=== PATIENT | male | born 1970 | race Two or more races ===

== ENCOUNTER 2024-10-22 20:58 | Inpatient (IN) | payer MEDICAID, OTHER ==
[~2024-10-22] VITALS: Ht 162.6 cm; Wt 81.5 kg
[2024-10-22 21:57] LABS: Basophils # (auto) 0 10 ^3/uL (0-0.2); Basophils % (auto) 0.4 % (0.0-2.0); Eosinophils # (auto) 0.2 10 ^3/uL (0-0.8); Eosinophils % (auto) 2.2 % (0.0-7.0); Hematocrit 42.9 % (41.0-53.0); Hemoglobin 14.8 g/dL (13.5-17.5); Lymphocytes # (auto) 2.1 10 ^3/uL (0.4-5.4); Lymphocytes % (auto) 25.7 % (10.0-50.0); Mean Corpuscular Hemoglobin 33.1 pg (28.0-32.0); Mean Corpuscular Hgb Conc. 34.4 g/dL (32.0-36.0); Mean Corpuscular Volume 96.2 fL (80.0-100.0); Monocytes # (auto) 0.7 10 ^3/uL (0-1.3); Monocytes % (auto) 8.2 % (0.0-12.0); Neutrophils # (auto) 5.3 10 ^3/uL (1.6-8.6); Neutrophils % (auto) 63.5 % (37.0-80.0); Nucleated Red Blood Cells % 0.2 %; Platelet Count (auto) 246 10^3/uL (140-450); Red Blood Cells 4.46 10^6/uL (4.5-5.90); Red Cell Distribution Width 12.7 % (11.8-14.3); White Blood Cell 8.3 10^3/uL (4.4-10.8)
[2024-10-22 22:09] LABS: Albumin 4.3 g/dL (3.2-4.8); Anion Gap 13 (5-15); BUN/Creatinine Ratio 12.8 (10.0-20.0); Blood Urea Nitrogen 14 mg/dL (9-23); Calcium 10.2 mg/dL (8.7-10.4); Carbon Dioxide 23 mmol/L (20-31); Potassium 4.4 mmol/L (3.5-5.1)
[2024-10-22 22:10] LABS: Alanine Aminotransferase 49 U/L (7-40); Alkaline Phosphatase 185 U/L (46-116); Aspartate Aminotransferase 42 U/L (13-40); Bilirubin, Total 0.5 mg/dL (0.2-1.0); Chloride 94 mmol/L (98-107); Sodium 130 mmol/L (136-145); Total Protein 7.5 g/dL (5.7-8.2)
[2024-10-22 22:11] LABS: Glucose 609 mg/dL (74-106)
--- NOTE | 2024-10-22 22:32 | ED.PDOC ---
History of Present Illness HPI Comments 54-year-old male who came to ER for chest pain. Patient denies any medical problems, states for the past month, he has been having left anterior chest wall pain. Denies any trauma through the aforementioned area. For the past 4 days, patient still with left-sided chest pain, no associated shortness of breath. Patient complained also of weight loss, claims lost 40 lb in 1 week. Upon arrival, noted blood sugar of 609. Chief Complaint: Chest pain Time Seen by MD: 22:32 Reviewed Notes: Nurses Notes Allergies: Coded Allergies: NO KNOWN ALLERGIES (Unverified , 10/22/24) Information Source: Patient Mode of Arrival: Ambulatory Severity: Moderate Timing: Days Duration: Intermittent Prehospital treatment: None Past Medical History PAST MEDICAL HISTORY: Denies Surgical History: Denies all surgeries Family History Family History: Reviewed,noncontributory to illness Social History Smoker: Non-Smoker Alcohol: Denies ETOH Use Drugs: Denies Drug Use Lives In: Home Constitutional: denies: chills, diaphoresis, fatigue, fever, malaise, sweats, weakness, others EENTM: denies: blurred vision, double vision, ear bleeding, ear discharge, ear drainage, ear pain, ear ringing, eye pain, eye redness, hearing loss, mouth pain, mouth swelling, nasal discharge, nose bleeding, nose congestion, nose pain, photophobia, tearing, throat pain, throat swelling, voice changes, others Respiratory: reports: shortness of breath; denies: cough, hemoptysis, orthopnea, SOB at rest, SOB with excertion, stridor, wheezing, others Cardiovascular: reports: chest pain; denies: dizzy spells, diaphoresis, Dyspnea on exertion, edema, irregular heart beat, left arm pain, lightheadedness, palpitations, PND, syncope, others Gastrointestinal: denies: abdomen distended, abdominal pain, blood streaked bowels, constipated, diarrhea, dysphagia, difficulty swallowing, hematemesis, melena, nausea, poor appetite, poor fluid intake, rectal bleeding, rectal pain, vomiting, others Genitourinary: denies: burning, dysuria, flank pain, frequency, hematuria, incontinence, penile discharge, penile sore, pain, testicle pain, testicle swelling, urgency, others Neurological: denies: dizziness, fainting, headache, left sided numbness, left sided weakness, numbness, paresthesia, pre-existing deficit, right sided numbness, right sided weakness, seizure, speech problems, tingling, tremors, weakness, others Musculoskeletal: denies: back pain, gout, joint pain, joint swelling, muscle pain, muscle stiffness, neck pain, others Integumetry: denies: bruises, change in color, change in hair/nails, dryness, laceration, lesions, lumps, rash, wounds, others Allergic/Immunocompromised: denies: Difficulty Healing, Frequent Infections, Hives, Itching, others Hematologic/Lymphatic: denies: anemia, blood clots, easy bleeding, easy bruising, swollen glands, others Endocrine: denies: excessive hunger, excessive sweating, excessive thirst, excessive urination, flushing, intolerance to cold, intolerance to heat, unexplained weight gain, unexplained weight loss, others Physical Exam General Appearance: Mild Distress, Normal HEENT: Normal ENT Inspection, Pharynx Normal, TMs Normal Neck: Full Range of Motion, Non-Tender, Normal, Normal Inspection Respiratory: Chest Non-Tender, Lungs Clear, No Accessory Muscle Use, No Respiratory Distress, Normal Breath Sounds Cardiovascular: No Edema, No JVD, No Murmur, No Gallop, Normal Peripheral Pulses, Regular Rate/Rhythm Breast Exam: Deferred Gastrointestinal: No Organomegaly, Non Tender, No Pulsatile Mass, Normal Bowel Sounds, Soft Genitalia: Deferred Pelvic: Deferred Rectal: Deferred Extremities: No calf tenderness, Normal capillary refill, Normal inspection, Normal range of motion, Non-tender, No pedal edema Musculoskeletal : Apperance: Normal Neurologic: Alert, special delivery messenger II-XII nml as Tested, No Motor Deficits, Normal Affect, Normal Mood, No Sensory Deficits Cerebellar Function: Normal Reflexes: Normal Skin: Dry, Normal Color, Warm Lymphatic: No Adenopathy Was a procedure done? Was a procedure done?: No EKG EKG : Pulse Rate (adult): 101 [place]: LAD Cardiac Rhythm: ST Hypertrophy: LAE Differential Dx Considerations may include: Anemia, electrolyte imbalance, musculoskeletal pain, costochondritis, anxiety, shortness of breath, pneumonia X-Ray, Labs, Meds, VS Vital Signs Date Time Temp Pulse Resp B/P (MAP) Pulse Ox O2 Delivery O2 Flow Rate FiO2 10/22/24 23:40 97.6 91 20 148/102 (117) 95 97.6 10/22/24 22:32 101 10/22/24 21:27 97.6 114 18 178/76 (110) 95 Lab Test 10/22/24 21:42 Range/Units White Blood Count 8.3 4.4-10.8 10^3/uL Red Blood Count 4.46 L 4.5-5.90 10^6/uL Hemoglobin 14.8 13.5-17.5 g/dL Hematocrit 42.9 41.0-53.0 % Mean Corpuscular Volume 96.2 80.0-100.0 fL Mean Corpuscular Hemoglobin 33.1 H 28.0-32.0 pg Mean Corpuscular Hemoglobin Concent 34.4 32.0-36.0 g/dL Red Cell Distribution Width 12.7 11.8-14.3 % Platelet Count 246 140-450 10^3/uL Mean Platelet Volume 9.0 6.9-10.8 fL Neutrophils (%) (Auto) 63.5 37.0-80.0 % Lymphocytes (%) (Auto) 25.7 10.0-50.0 % Monocytes (%) (Auto) 8.2 0.0-12.0 % Eosinophils (%) (Auto) 2.2 0.0-7.0 % Basophils (%) (Auto) 0.4 0.0-2.0 % Neutrophils # (Auto) 5.3 1.6-8.6 10 ^3/uL Lymphocytes # (Auto) 2.1 0.4-5.4 10 ^3/uL Monocytes # (Auto) 0.7 0-1.3 10 ^3/uL Eosinophils # (Auto) 0.2 0-0.8 10 ^3/uL Basophils # (Auto) 0 0-0.2 10 ^3/uL Nucleated Red Blood Cells 0.2 % Sodium Level 130 L 136-145 mmol/L Potassium Level 4.4 3.5-5.1 mmol/L Chloride Level 94 L 98-107 mmol/L Carbon Dioxide Level 23 20-31 mmol/L Anion Gap 13 5-15 Blood Urea Nitrogen 14 9-23 mg/dL Creatinine 1.09 0.700-1.30 mg/dL Glomerular Filtration Rate Calc 82 >90 mL/min BUN/Creatinine Ratio 12.8 10.0-20.0 Serum Glucose 609 *H 74-106 mg/dL Calcium Level 10.2 8.7-10.4 mg/dL Total Bilirubin 0.5 0.2-1.0 mg/dL Aspartate Amino Transferase (AST) 42 H 13-40 U/L Alanine Aminotransferase (ALT) 49 H 7-40 U/L Alkaline Phosphatase 185 H 46-116 U/L Troponin I High Sensitivity 5 </=54 ng/L Total Protein 7.5 5.7-8.2 g/dL Albumin 4.3 3.2-4.8 g/dL CBC is within normal limits Sodium is 130. Serum glucose is 609. CO2 is 23 Troponin is five. EKG shows no signs of ischemia. LFTs are elevated. Beta hydroxybutyric acid is pending and lactic acid is pending The patient should be admitted for first-time diabetes, new upset to the hospital for further evaluation and care. Images Reviewed?: Images reviewed and evaluated by me Time of 1ST Reevaluation: 22:27 Reevaluation 1ST: Unchanged Patient Education/Counseling: Diagnosis, Treatment Family Education/Counseling: No Family Present Departure 1 Departure Time of Disposition: 23:52 Impression: Primary Impression: Hyperglycemia Additional Impressions: Dehydration Elevated LFTs Disposition: ADMITTED INPATIENT Admit to: Tele Condition: Guarded Critical Care Note Critical Care Time?: Yes (35 min-critical care time only) Critical care comment: Hyperglycemia Stability Stability form required: No Heart Score Heart Score: Heart Score Response (Comments) Value History N/A 0 EKG N/A 0 Age N/A 0 Risk Factors N/A 0 Troponin N/A 0 Total 0 I personally scribed for YEISON BAUTISTA MD ([email or web address]) on 10/22/24 at 22:32. Electronically submitted by Rafael Partida ([email or web address]). YEISON BAUTISTA MD Oct 22, 2024 22:32
[2024-10-23] MEDS: SODIUM CHLORIDE 0.9% 2,000 ML IV ONE (02:51)
[2024-10-23 02:53] VITALS: PULSE 91; RESP 20; O2SAT 97
[2024-10-23] MEDS ORDERED: MORPHINE SULFATE INJ 2 MG/ml SYRG IV PRN (07:45)
[2024-10-23] MEDS ORDERED: DEXTROSE (50%) 50ML SYRG IV PRN ×2 (07:45→08:00)
[2024-10-23] MEDS ORDERED: ONDANSETRON HCL 4 MG/2 ML VIAL IV PRN (07:45)
[2024-10-23] MEDS ORDERED: hydrALAZINE HCL 20 MG/ML VL IV PRN (07:45)
[2024-10-23] MEDS ORDERED: NITROGLYCERIN 0.4 MG SL TAB SL PRN (07:45)
--- NOTE | 2024-10-23 07:58 | DVHHP2 ---
History of Present Illness Reason for Visit: Chest pain History of Present Illness This 54-year-old male presents in the ED with a chief complaint of chest wall pain. The patient reports intermittent chest wall pain for the past one month. Chest pain described as pressure pain associated with shortness of breath, worse on exertion intermittently, and bilateral leg pain for the past one month. The patient denies past medical history and has not seen PCP due to lacking of insurance. Patient denies tobacco, illicit drug, or ETOH use. Denies familiar history of cardiovascular disease. In the emergency department, noted blood sugar of 609, positive beta hydroxy. The patient was given IV fluid and repeated blood sugar came back entry 100s. Past Medical History Denies Past Surgical History Denies Family History Reviewed, non-contributory to the management of this case. Past Social History The patient lives at home, denies smoking, alcohol or illicit drugs abuse. Review of Systems Constitutional: Yes: Malaise; No: Fever, Chills, Sweats, Weakness, Other Eyes: No: Pain, Vision change, Conjunctivae inflammation, Eyelid inflammation, Other, Redness ENT: No: Ear pain, Ear discharge, Nose pain, Nose discharge, Nose congestion, Mouth pain, Mouth swelling, Throat pain, Throat swelling, Other Respiratory: No: Cough, Dry, Shortness of breath, SOB with excertion, Wheezing, Hemoptysis, Pleuritic Pain, Sputum, Wheezing, Other Cardiovascular: Chest Pain; No: Palpitations, Orthopnea, Paroxysmal Noc. Dyspnea, Edema, Lt Headedness, Other Gastrointestinal: No: Nausea, Vomiting, Abdominal Pain, Diarrhea, Constipation, Melena, Hematochezia, Other Genitourinary: No Dysuria, No Frequency, No Incontinence, No Hematuria, No Retention, No Other Musculoskeletal: No: other, neck pain, shoulder pain, arm pain, back pain, hand pain, leg pain, foot pain Skin: No: Rash, Lesions, Jaundice, Bruising, Other Neurological: No: Weakness, Numbness, Incoordination, Change in speech, Confusion, Seizures, Other Allergies: Coded Allergies: NO KNOWN ALLERGIES (Unverified , 10/22/24) Exam Vital Signs Vital Signs Date Time Temp Pulse Resp B/P (MAP) Pulse Ox O2 Delivery O2 Flow Rate FiO2 10/23/24 06:32 97.5 76 18 140/86 (104) 97 97.5 10/23/24 02:53 Room Air* 0 21 General Appearance: Alert, Oriented X3, Cooperative, mild distress HEENT: Atraumatic, PERRLA, EOMI, Mucous membr. moist/pink Respiratory: Clear to auscultation, Normal air movement Cardiovascular: Regular rate, Normal S1, Normal S2 Abdominal: Normal bowel sounds, Soft, No tenderness Extremities: No clubbing, No cyanosis, No edema, Normal pulses Skin: No rashes, No breakdown, No significant lesion Neuro: Normal gait, Normal speech, Strength at 5/5 X4 ext, Normal tone Psych/Mental Status: Mental status NL Labs/Xrays Labs Test 10/23/24 06:11 10/23/24 00:09 10/22/24 21:42 Range/Units Troponin I High Sensitivity 6 </=54 ng/L Lactic Acid Level 1.2 0.4-2.0 mmol/L Beta-Hydroxybutyric Acid 4.485 H < 0.4 mmol/L White Blood Count 8.3 4.4-10.8 10^3/uL Red Blood Count 4.46 L 4.5-5.90 10^6/uL Hemoglobin 14.8 13.5-17.5 g/dL Hematocrit 42.9 41.0-53.0 % Mean Corpuscular Volume 96.2 80.0-100.0 fL Mean Corpuscular Hemoglobin 33.1 H 28.0-32.0 pg Mean Corpuscular Hemoglobin Concent 34.4 32.0-36.0 g/dL Red Cell Distribution Width 12.7 11.8-14.3 % Platelet Count 246 140-450 10^3/uL Mean Platelet Volume 9.0 6.9-10.8 fL Neutrophils (%) (Auto) 63.5 37.0-80.0 % Lymphocytes (%) (Auto) 25.7 10.0-50.0 % Monocytes (%) (Auto) 8.2 0.0-12.0 % Eosinophils (%) (Auto) 2.2 0.0-7.0 % Basophils (%) (Auto) 0.4 0.0-2.0 % Neutrophils # (Auto) 5.3 1.6-8.6 10 ^3/uL Lymphocytes # (Auto) 2.1 0.4-5.4 10 ^3/uL Monocytes # (Auto) 0.7 0-1.3 10 ^3/uL Eosinophils # (Auto) 0.2 0-0.8 10 ^3/uL Basophils # (Auto) 0 0-0.2 10 ^3/uL Nucleated Red Blood Cells 0.2 % Sodium Level 130 L 136-145 mmol/L Potassium Level 4.4 3.5-5.1 mmol/L Chloride Level 94 L 98-107 mmol/L Carbon Dioxide Level 23 20-31 mmol/L Anion Gap 13 5-15 Blood Urea Nitrogen 14 9-23 mg/dL Creatinine 1.09 0.700-1.30 mg/dL Glomerular Filtration Rate Calc 82 >90 mL/min BUN/Creatinine Ratio 12.8 10.0-20.0 Serum Glucose 609 *H 74-106 mg/dL Calcium Level 10.2 8.7-10.4 mg/dL Total Bilirubin 0.5 0.2-1.0 mg/dL Aspartate Amino Transferase (AST) 42 H 13-40 U/L Alanine Aminotransferase (ALT) 49 H 7-40 U/L Alkaline Phosphatase 185 H 46-116 U/L Total Protein 7.5 5.7-8.2 g/dL Albumin 4.3 3.2-4.8 g/dL Assessment/Plan Assessment/Plan # Uncontrolled blood sugar # Rule out DKA # Possible Diabetes mellitus type 2 Admit to [facility] Repeat labs Lantus IV fluid May start insulin drip based on repeated blood work Check A1c, lipid panel # acute intermittent wall chest pain, possible noncardiac Normal EKG, negative troponin Check echo ASA, Statins Check TSH # obesity Lifestyle modification counseled with regular diet exercise and weight loss DVT prophylaxis Medical plan discussed with patient and RN Plan discussed with: Patient My Orders Orders - GISELLE ORELLANA CLINICAL INFORMATICS DIRECTOR Procedure Category Date Status Time Complete Blood Count LAB 10/23/24 Logged 07:20 Comprehensive LAB 10/23/24 Logged Metabolic Panel 07:20 Beta-Hydroxybutyrate LAB 10/23/24 Logged 07:20 Urinalysis LAB 10/23/24 Logged 07:20 Hemoglobin A1c LAB 10/23/24 Transmitted 07:41 Thyroid Stimulating LAB 10/23/24 Transmitted Hormone 07:41 Lipid Panel LAB 10/23/24 Transmitted 07:41 NS PHA 10/23/24 Transmitted 07:45 Chest Xray 1 View XY 10/23/24 Transmitted 07:41 Electrocardigram EKG 10/23/24 Transmitted 07:41 Communication Order ORDERS 10/23/24 Transmitted 07:41 Insulin Lantus PHA 10/23/24 Transmitted (Glargine) (Lantus) 22:00 Insulin Lantus PHA 10/23/24 Transmitted (Glargine) (Lantus) 07:45 Echo 2d Mode Cardiac US 10/23/24 Transmitted DOP 07:41 NS PHA 10/23/24 Transmitted 07:45 Hydralazine Injection PHA 10/23/24 Transmitted (Apresoline Inject 07:45 Admit ADMIT 10/23/24 Transmitted 07:41 Code Status CODE 10/23/24 Transmitted 07:41 Ondansetron Hcl PHA 10/23/24 Transmitted (Zofran) 07:45 Enoxaparin Sodium PHA 10/23/24 Transmitted (Lovenox) 10:00 Complete Blood Count LAB 10/24/24 Verified 04:00 Comprehensive LAB 10/24/24 Verified Metabolic Panel 04:00 Cardiac DIET 10/23/24 Transmitted Diet-2gna,Lofat,Lochol Breakfast Condition: Fair MARYBETH 10/23/24 In Process 07:41 Nitroglycerin PHA 10/23/24 Transmitted Sublingual (Ntrostat 07:45 Morphine Sulfate PHA 10/23/24 Transmitted Injection 07:45 Stat Ekg For Chest MARYBETH 10/23/24 In Process Pain 07:41 Notify Md Of Changes MARYBETH 10/23/24 In Process From Base 07:41 Computer Aided Drafter For MARYBETH 10/23/24 In Process 24 Hours 07:41 Emergency Dysrhythmia MARYBETH 10/23/24 In Process Protocol 07:41 Rhythm Strips Once [facility] 10/23/24 In Process Every Shift 07:41 Oxygen By Nasal RT 10/23/24 Transmitted Cannula 07:41 Insulin R (Human) PHA 10/23/24 Transmitted (Insulin R) 07:45 Glucose Blood PHA 10/23/24 Transmitted (Accu-Chek Comfort 11:30 Mild Sliding Scale PHA 10/23/24 Transmitted 11:30 Dextrose 50% Syringe PHA 10/23/24 Transmitted 07:45 Date of Service: Oct 23, 2024 Billing Provider: GISELLE ORELLANAP Common Visit Codes: [id number] INP/OBS CARE (HIGH) GISELLE ORELLANAP Oct 23, 2024 07:58
[2024-10-23 08:06] LABS: Basophils # (auto) 0 10 ^3/uL (0-0.2); Basophils % (auto) 0.3 % (0.0-2.0); Eosinophils # (auto) 0.3 10 ^3/uL (0-0.8); Eosinophils % (auto) 3.5 % (0.0-7.0); Hematocrit 40.8 % (41.0-53.0); Hemoglobin 14.1 g/dL (13.5-17.5); Lymphocytes # (auto) 2.2 10 ^3/uL (0.4-5.4); Lymphocytes % (auto) 27.1 % (10.0-50.0); Mean Corpuscular Hemoglobin 33.1 pg (28.0-32.0); Mean Corpuscular Hgb Conc. 34.4 g/dL (32.0-36.0); Monocytes # (auto) 0.7 10 ^3/uL (0-1.3); Monocytes % (auto) 8.3 % (0.0-12.0); Neutrophils # (auto) 4.9 10 ^3/uL (1.6-8.6); Neutrophils % (auto) 60.8 % (37.0-80.0); Platelet Count (auto) 238 10^3/uL (140-450); Red Blood Cells 4.25 10^6/uL (4.5-5.90); Red Cell Distribution Width 13.3 % (11.8-14.3); White Blood Cell 8.1 10^3/uL (4.4-10.8)
[2024-10-23 08:14] LABS: Albumin 4.2 g/dL (3.2-4.8); Anion Gap 13 (5-15); Aspartate Aminotransferase 33 U/L (13-40); BUN/Creatinine Ratio 10.3 (10.0-20.0); Calcium 9.4 mg/dL (8.7-10.4); Carbon Dioxide 21 mmol/L (20-31); Chloride 102 mmol/L (98-107); HDL Cholesterol 55 mg/dL (40-59); Potassium 4.1 mmol/L (3.5-5.1); Sodium 136 mmol/L (136-145); Triglycerides 268 mg/dL (< 150)
[2024-10-23 08:15] LABS: Alanine Aminotransferase 43 U/L (7-40); Alkaline Phosphatase 137 U/L (46-116); Bilirubin, Total 0.6 mg/dL (0.2-1.0); Blood Urea Nitrogen 9 mg/dL (9-23); Cholesterol 286 mg/dL (< 200); Glucose 346 mg/dL (74-106); LDL Cholesterol 199 mg/dL (< 100); Total Protein 7.5 g/dL (5.7-8.2)
[2024-10-23] MEDS: INSULIN LANTUS (GLARGINE) 1 /0.01ml (100units/ml) SC ONE (08:22)
[2024-10-23] MEDS: InsuLIN REG 1unit/0.01ml Soln (100units/ml) SC ONE (08:22)
[2024-10-23] MEDS: SODIUM CHLORIDE 0.9% 1,000 ML IV ONE (08:22)
[2024-10-23] MEDS: SODIUM CHLORIDE 0.9% 1,000 ML IV SCH (08:23)
--- NOTE | 2024-10-23 08:40 | DVH ---
CHEST RADIOGRAPH Indication: CHEST PAIN Technique: Single frontal view of the chest was obtained Comparison: None FINDINGS: Lines and Tubes: None Lungs: No focal consolidation. Pleura: No effusion. No pneumothorax. Cardiomediastinal contours: Unremarkable Bones: No acute osseous abnormality. IMPRESSION: 1. No acute cardiopulmonary disease.
[2024-10-23] MEDS: ASPirin 325 MG TAB PO ONE (08:56)
[2024-10-23] MEDS: ENOXAPARIN SOD 40 MG/0.4 ML SYRINGE SC SCH (08:56)
[2024-10-23] MEDS: ACCU-CHEK COMFORT CURVE STRIP VI SCH (11:19)
[2024-10-23] MEDS: InsuLIN REG 1unit/0.01ml Soln (100units/ml) SC SCH (11:24)
[2024-10-23] MEDS ORDERED: InsuLIN REG 1unit/0.01ml Soln (100units/ml) SC SCH (11:30)
[2024-10-23] MEDS ORDERED: ACCU-CHEK COMFORT CURVE STRIP VI SCH (11:30)
[2024-10-23 18:50] VITALS: PULSE 77; RESP 16; O2SAT 95
[2024-10-23 19:04] VITALS: BP 137/81; PULSE 87; RESP 17; TEMP 97.9; O2SAT 96
[2024-10-23 20:00] VITALS: PULSE 77; RESP 16; O2SAT 95
[2024-10-23 21:00] VITALS: BP 118/78; PULSE 77; RESP 16; TEMP 97.7; O2SAT 95
[2024-10-23] MEDS: INSULIN LANTUS (GLARGINE) 1 /0.01ml (100units/ml) SC SCH (22:00)
[2024-10-23] MEDS: ATORVASTATIN 20 MG TAB PO SCH (22:21)
[2024-10-24] VITALS (8 sets, daily range): BP systolic 113–119; BP diastolic 69–78; PULSE 66–78; RESP 16–18; TEMP 97.6–98.2; O2SAT 95–100
[2024-10-24 07:47] LABS: Alanine Aminotransferase 35 U/L (7-40); Albumin 3.4 g/dL (3.2-4.8); Alkaline Phosphatase 83 U/L (46-116); Anion Gap 10 (5-15); Aspartate Aminotransferase 28 U/L (13-40); BUN/Creatinine Ratio 11.9 (10.0-20.0); Calcium 9.1 mg/dL (8.7-10.4); Carbon Dioxide 22 mmol/L (20-31); Chloride 105 mmol/L (98-107); Potassium 3.6 mmol/L (3.5-5.1); Sodium 137 mmol/L (136-145)
[2024-10-24 07:48] LABS: Bilirubin, Total 0.6 mg/dL (0.2-1.0); Total Protein 6.1 g/dL (5.7-8.2)
[2024-10-24 07:52] LABS: Blood Urea Nitrogen 8 mg/dL (9-23); Glucose 266 mg/dL (74-106)
[2024-10-24 08:27] LABS: Basophils # (auto) 0.1 10 ^3/uL (0-0.2); Basophils % (auto) 0.7 % (0.0-2.0); Eosinophils # (auto) 0.8 10 ^3/uL (0-0.8); Eosinophils % (auto) 10.5 % (0.0-7.0); Hematocrit 37.9 % (41.0-53.0); Hemoglobin 13.2 g/dL (13.5-17.5); Lymphocytes # (auto) 2.2 10 ^3/uL (0.4-5.4); Mean Corpuscular Hemoglobin 33.5 pg (28.0-32.0); Mean Corpuscular Hgb Conc. 34.9 g/dL (32.0-36.0); Mean Corpuscular Volume 96.1 fL (80.0-100.0); Monocytes # (auto) 0.5 10 ^3/uL (0-1.3); Monocytes % (auto) 6.6 % (0.0-12.0); Neutrophils % (auto) 53.2 % (37.0-80.0); Nucleated Red Blood Cells % 0.1 %; Platelet Count (auto) 214 10^3/uL (140-450); Red Blood Cells 3.94 10^6/uL (4.5-5.90); Red Cell Distribution Width 13.2 % (11.8-14.3); White Blood Cell 7.5 10^3/uL (4.4-10.8)
[2024-10-24] MEDS: ASPirin 81 mg TAB PO SCH (09:03)
--- NOTE | 2024-10-24 11:53 | DVHPN2 ---
Subjective Decreasing chest pain; helped with translation Reviewed: Care Plan, H&P, Labs, Medications, Previous Orders, Radiology Changes from previous H/P or p: Changes Objective Vitals Vital Signs Date Time Temp Pulse Resp B/P (MAP) Pulse Ox O2 Delivery O2 Flow Rate FiO2 10/24/24 08:44 98.2 66 18 113/73 (86) 95 98.2 10/23/24 20:00 Room Air* 0 21 Intake/Output Intake and Output 10/24/24 07:00 Intake Total 1000 ml Balance 1000 ml Intake IV Total 1000 ml # Bowel Movements 1 General Appearance: Alert, Oriented X3, Cooperative, No acute distress HEENT: Atraumatic Lungs: Clear to auscultation, Normal air movement Cardiovascular: Regular rate, Normal S1, Normal S2 Abdomen: Normal bowel sounds, Soft, No tenderness Extremities: No edema Neuro: Normal speech, Cranial nerves 3-12 NL Psych/Mental Status: Mental status NL, Mood NL Medications Current Medications Medications Dose Ordered Sig/Art Route Start Time Stop Time Status Last Admin Dose Admin Insulin Glargine 12 units HS SC 10/23/24 22:00 10/23/24 22:00 12 UNITS Sodium Chloride 1,000 ml @ 100 mls/hr Q10H IV 10/23/24 07:45 10/23/24 17:45 100 MLS/HR Hydralazine HCl 10 mg Q6HP PRN IV 10/23/24 07:45 Ondansetron HCl 4 mg Q4HP PRN IV 10/23/24 07:45 Enoxaparin Sodium 40 mg DAILY SC 10/23/24 10:00 10/24/24 09:03 40 MG Nitroglycerin 0.4 mg Q5MINP PRN SL 10/23/24 07:45 Morphine Sulfate 2 mg Q30M PRN IV 10/23/24 07:45 Diagnostic Test (Pha) 1 strip ACHS 10/23/24 11:30 10/24/24 06:21 1 STRIP Insulin Human Regular ACHS SC 10/23/24 11:30 10/24/24 06:34 4 UNITS Dextrose 50 ml UD PRN IV 10/23/24 08:00 Aspirin 81 mg DAILY PO 10/24/24 10:00 10/24/24 09:03 81 MG Atorvastatin Calcium 40 mg HS PO 10/23/24 22:00 10/23/24 22:21 40 MG Laboratory Results Laboratory Tests 10/24/24 06:53 Chemistry Test 10/24/24 06:53 Albumin 3.4 g/dL (3.2-4.8) Calcium Level 9.1 mg/dL (8.7-10.4) Total Protein 6.1 g/dL (5.7-8.2) LFT Test 10/24/24 06:53 Alanine Aminotransferase (ALT) 35 U/L (7-40) Alkaline Phosphatase 83 U/L (46-116) Aspartate Amino Transferase (AST) 28 U/L (13-40) Total Bilirubin 0.6 mg/dL (0.2-1.0) Labs and/or images reviewed: Labs reviewed by me, Image(s) reviewed by me Assessment/Plan Assessment/Plan A 54-year-old obese male patient; with no known past medical history; who presented to the emergency department with chest pain. #Chest pain; negative troponin levels; no ischemic changes on EKG; reviewed echocardiogram; consulted Cardiology in the setting of newly diagnosed uncontrolled diabetes mellitus type 2 and newly diagnosed uncontrolled mixed dyslipidemia; continue aspirin and statin; continue close monitoring #Hypertensive crisis; now controlled blood pressure reading; unknown to have essential hypertension; continue IV hydralazine as needed for now; pending evaluation by Cardiology; continue close monitoring #MEG; most likely vasomotor nephropathy in the setting of hypertensive crisis; avoid nephrotoxic agents; continue IV fluids; continue close monitoring #Suspected hyperosmolar hyperglycemic state in the setting of newly diagnosed uncontrolled diabetes mellitus type 2; continue long-acting insulin along with insulin sliding scale and hypoglycemia protocol; continue IV fluids; continue monitoring #Suspected dehydration; continue IV fluids; continue monitoring #Newly diagnosed uncontrolled diabetes mellitus type 2 with hemoglobin A1c of 14%; management as above; continue monitoring #Newly diagnosed uncontrolled mixed dyslipidemia; continue statin; continue monitoring #Elevated TSH; ordered free T4 and free T3; continue monitoring #Elevated LFTs; unclear etiology; could be related to dehydration in the setting of hyperglycemia; avoid hepatotoxic agents; denies alcohol use and illicit drug use; continue monitoring #Obesity with metabolic syndrome; counseled on the importance of adopting healthy lifestyle with diet and exercise in order to lose weight; continue monitoring #Milking Machine Technician consulted to help with medical insurance Goals of care discussed with the patient and his for 20 minutes; full code. 66 minutes of critical care time. Late Entry. This medical document was created using an electronic medical record system with computerized dictation system. Although this document has been carefully reviewed, there might still be some phonetic and typographical errors. These areas are purely typographical due to imperfections of the software programs, and do not reflect any compromise in the patient's medical care. Plan discussed with: Patient, Spouse, Other Date of Service: Oct 24, 2024 Billing Provider: CARMEN NICKERSON MD Common Visit Codes: [id number] CARE 30-74 MIN (66 minutes) Secondary Visit Codes: [id number] CARE PLAN 30 MINUTES (20 minutes) CARMEN NICKERSON MD Oct 24, 2024 11:53
--- NOTE | 2024-10-24 12:56 | DVHSR ---
APPROVED REPORT EXAM: Two-dimensional and M-mode echocardiogram with Doppler and color Doppler. Blood Pressure: 114/74 mmHg INDICATION Chest Pain RISK FACTORS Height: 64, Weight: 176 DIMENSIONS LVDd3.8 (3.8-5.7cm)LA (2D)3.7 (1.9-4.0cm)Aortic Root3.1 (2.0-3.7cm) LVDs2.4 (2.5-4.0cm)LA (MM) (1.9-4.0cm)Aortic Cusp Exc1.8 (1.5-2.0cm) EF (%) 65.0 (55-70%)Rt. Atrium3.8 (1.9-4.0cm)Asc. Aorta cm Mitral Valve MitralMitral Stenosis E wave0.83m/sMV Mean GR.mmHg A wave0.78m/sMV Peak GR.mmHg E/A ratio1.12D MVAcm2 DECEL [id number] 1/2 [id number] IVRTmsDop MVA3.33cm2 Aortic Valve Aortic ValveAortic Stenosis V11.44m/Justina Mean GR.6mmHg V21.68m/Justina Peak GR.11mmHg LVOT Diameter1.7 (1.8-2.4cm)Doppler AVA1.94cm2 Tricuspid Valve TR Velocity2.27m/s [id number] LEFT VENTRICLE Normal left ventricular size. Wall thickness is normal. Ejection fraction is normal and is estimate d at 60%. No gross wall motion abnormalities but subendocardial definition is limited. Diastolic fu nction appears to be preserved. E to E prime ratio is in the normal range. RIGHT VENTRICLE Normal right ventricular size and systolic function. ATRIA Both atria are of normal size. MITRAL VALVE Normal structure and function. No significant mitral regurgitation. PULMONIC VALVE Likely normal. TRICUSPID VALVE Normal structure and function. There is trace tricuspid regurgitation. PA systolic pressure is angela mated at 28 mm Hg. AORTIC VALVE Trileaflet in morphology. No significant stenosis or regurgitation. GREAT VESSELS The aortic root and proximal ascending aorta are of normal size. PERICARDIAL EFFUSION No significant pericardial effusion. IVC is of normal size and collapses normally with inspiration. Conclusion Normal left ventricular size and ejection fraction. Ejection fraction is estimated at 60%. Normal right ventricular size and systolic function. No hemodynamically significant valvular disease. No evidence of pericardial effusion. No evidence of pulmonary hypertension.
[2024-10-25] VITALS (8 sets, daily range): BP systolic 116–135; BP diastolic 74–86; PULSE 69–79; RESP 17–19; TEMP 97.3–98.3; O2SAT 95–100
[2024-10-25 07:36] LABS: Basophils # (auto) 0 10 ^3/uL (0-0.2); Basophils % (auto) 0.5 % (0.0-2.0); Eosinophils # (auto) 0.7 10 ^3/uL (0-0.8); Eosinophils % (auto) 9.6 % (0.0-7.0); Hematocrit 39.2 % (41.0-53.0); Hemoglobin 13.8 g/dL (13.5-17.5); Lymphocytes # (auto) 2.4 10 ^3/uL (0.4-5.4); Lymphocytes % (auto) 32.8 % (10.0-50.0); Mean Corpuscular Hemoglobin 33.5 pg (28.0-32.0); Mean Corpuscular Hgb Conc. 35.2 g/dL (32.0-36.0); Mean Corpuscular Volume 94.9 fL (80.0-100.0); Monocytes # (auto) 0.6 10 ^3/uL (0-1.3); Neutrophils # (auto) 3.6 10 ^3/uL (1.6-8.6); Neutrophils % (auto) 49.1 % (37.0-80.0); Nucleated Red Blood Cells % 0.1 %; Platelet Count (auto) 205 10^3/uL (140-450); Red Blood Cells 4.13 10^6/uL (4.5-5.90); White Blood Cell 7.3 10^3/uL (4.4-10.8)
[2024-10-25 08:02] LABS: Chloride 105 mmol/L (98-107); Sodium 139 mmol/L (136-145)
[2024-10-25 08:03] LABS: Anion Gap 11 (5-15); Calcium 9.2 mg/dL (8.7-10.4); Carbon Dioxide 23 mmol/L (20-31)
[2024-10-25 08:08] LABS: BUN/Creatinine Ratio 12.9 (10.0-20.0)
[2024-10-25 08:09] LABS: Blood Urea Nitrogen 8 mg/dL (9-23); Glucose 240 mg/dL (74-106); Potassium 3.3 mmol/L (3.5-5.1)
[2024-10-25 08:58] LABS: Free T3 2.97 pg/mL (2.3-4.2)
--- NOTE | 2024-10-25 11:38 | DVHPN2 ---
Subjective Still with chest pain; helped with translation Reviewed: Care Plan, H&P, Labs, Medications, Previous Orders, Radiology Changes from previous H/P or p: No Changes Objective Vitals Vital Signs Date Time Temp Pulse Resp B/P (MAP) Pulse Ox O2 Delivery O2 Flow Rate FiO2 10/25/24 08:44 97.3 70 18 129/81 (97) 100 97.3 10/25/24 08:00 Room Air* 0 21 Intake/Output Intake and Output 10/25/24 07:00 Intake Total 2800 ml Balance 2800 ml Intake Oral 1800 ml IV Total 1000 ml # Voids 5 # Bowel Movements 2 General Appearance: Alert, Oriented X3, Cooperative, No acute distress HEENT: Atraumatic Lungs: Clear to auscultation, Normal air movement Cardiovascular: Regular rate, Normal S1, Normal S2 Abdomen: Normal bowel sounds, Soft, No tenderness Extremities: No edema Neuro: Normal speech, Cranial nerves 3-12 NL Psych/Mental Status: Mental status NL, Mood NL Medications Current Medications Medications Dose Ordered Sig/Art Route Start Time Stop Time Status Last Admin Dose Admin Insulin Glargine 12 units HS SC 10/23/24 22:00 10/24/24 21:31 12 UNITS Sodium Chloride 1,000 ml @ 100 mls/hr Q10H IV 10/23/24 07:45 10/25/24 09:08 100 MLS/HR Hydralazine HCl 10 mg Q6HP PRN IV 10/23/24 07:45 Ondansetron HCl 4 mg Q4HP PRN IV 10/23/24 07:45 Enoxaparin Sodium 40 mg DAILY SC 10/23/24 10:00 10/25/24 09:08 40 MG Nitroglycerin 0.4 mg Q5MINP PRN SL 10/23/24 07:45 Morphine Sulfate 2 mg Q30M PRN IV 10/23/24 07:45 Diagnostic Test (Pha) 1 strip ACHS 10/23/24 11:30 10/25/24 11:21 1 STRIP Insulin Human Regular ACHS SC 10/23/24 11:30 10/25/24 06:05 4 UNITS Dextrose 50 ml UD PRN IV 10/23/24 08:00 Aspirin 81 mg DAILY PO 10/24/24 10:00 10/25/24 09:08 81 MG Atorvastatin Calcium 40 mg HS PO 10/23/24 22:00 10/24/24 21:21 40 MG Laboratory Results Laboratory Tests 10/25/24 06:17 Chemistry Test 10/25/24 06:17 Calcium Level 9.2 mg/dL (8.7-10.4) Labs and/or images reviewed: Labs reviewed by me, Image(s) reviewed by me Assessment/Plan Assessment/Plan A 54-year-old obese male patient; with no known past medical history; who presented to the emergency department with chest pain. #Chest pain; negative troponin levels; no ischemic changes on EKG; reviewed echocardiogram; consulted Cardiology in the setting of newly diagnosed uncontrolled diabetes mellitus type 2 and newly diagnosed uncontrolled mixed dyslipidemia; placed communication order to ensure that cardiology team was paged/informed; continue aspirin and statin; continue close monitoring #Hypertensive crisis; now controlled blood pressure reading; unknown to have essential hypertension; reviewed echocardiogram; continue IV hydralazine as needed for now; pending evaluation by Cardiology; continue close monitoring #MEG; most likely vasomotor nephropathy in the setting of hypertensive crisis; avoid nephrotoxic agents; continue IV fluids; continue close monitoring #Hypokalemia; unclear etiology; replaced; ordered morning magnesium level; continue monitoring #Suspected hyperosmolar hyperglycemic state in the setting of newly diagnosed uncontrolled diabetes mellitus type 2; continue long-acting insulin along with insulin sliding scale and hypoglycemia protocol; adjusted glargine dose to 20 units twice a day; continue IV fluids; continue monitoring #Suspected dehydration; continue IV fluids; continue monitoring #Newly diagnosed uncontrolled diabetes mellitus type 2 with hemoglobin A1c of 14%; management as above; continue monitoring #Newly diagnosed uncontrolled mixed dyslipidemia; continue statin; continue monitoring #Elevated TSH; ordered free T4 and free T3; continue monitoring #Elevated LFTs; unclear etiology; could be related to dehydration in the setting of hyperglycemia; avoid hepatotoxic agents; denies alcohol use and illicit drug use; continue monitoring #Obesity with metabolic syndrome; counseled on the importance of adopting healthy lifestyle with diet and exercise in order to lose weight; continue monitoring #Display Carver consulted to help with medical insurance Late Entry. This medical document was created using an electronic medical record system with computerized dictation system. Although this document has been carefully reviewed, there might still be some phonetic and typographical errors. These areas are purely typographical due to imperfections of the software programs, and do not reflect any compromise in the patient's medical care. Plan discussed with: Patient, Spouse, Other (Nurse) My Orders Orders - CARMEN NICKERSON MD Procedure Category Date Status Time * Cardiology Consult CONS 10/25/24 Transmitted 04:17 * Display Carver CONS 10/25/24 Transmitted Consult Comprehensive LAB 10/26/24 Verified Metabolic Panel 04:00 Potassium Effervesent PHA 10/25/24 Verified Tab (Klor-Con/Ef) 11:45 Magnesium LAB 10/26/24 Verified 04:00 Date of Service: Oct 25, 2024 Billing Provider: CARMEN NICKERSON MD Common Visit Codes: [id number] INP/OBS CARE(HIGH) CARMEN NICKERSON MD Oct 25, 2024 11:38
[2024-10-25] MEDS: POTASSIUM EFFERVESENT TAB 25 MEQ PO ONE (11:56)
[2024-10-26 01:00] VITALS: BP 137/89; PULSE 86; RESP 19; TEMP 97.6; O2SAT 97
[2024-10-26 05:00] VITALS: BP 112/77; PULSE 72; RESP 18; TEMP 97.8; O2SAT 97
[2024-10-26 06:26] LABS: Albumin 3.7 g/dL (3.2-4.8); Alkaline Phosphatase 84 U/L (46-116); Anion Gap 10 (5-15); BUN/Creatinine Ratio 11.4 (10.0-20.0); Carbon Dioxide 24 mmol/L (20-31); Chloride 104 mmol/L (98-107); Magnesium 1.9 mg/dL (1.6-2.6); Sodium 138 mmol/L (136-145)
[2024-10-26 06:27] LABS: Bilirubin, Total 0.6 mg/dL (0.2-1.0); Total Protein 6.7 g/dL (5.7-8.2)
[2024-10-26 06:30] LABS: Alanine Aminotransferase 54 U/L (7-40); Aspartate Aminotransferase 46 U/L (13-40); Blood Urea Nitrogen 8 mg/dL (9-23); Glucose 195 mg/dL (74-106); Potassium 3.4 mmol/L (3.5-5.1)
[2024-10-26 08:00] VITALS: PULSE 81; RESP 18; O2SAT 94
[2024-10-26 08:59] VITALS: BP 114/77; PULSE 81; RESP 16; TEMP 97.7; O2SAT 96
--- NOTE | 2024-10-26 09:38 | ECG ---
[facility] Test Date: 2024-10-22 Test Time: 21:30:17 Pat Name: AMADA VALDEZ Department: er Room: 0249 A Gender: M Hardware Assembler: felisha : 1970 Requested By: YEISON BAUTISTA Order Number: [id number] Reading MD: Torrey Sellers Measurements Intervals [place] Rate: 101 P: 42 OR: 144 QRS: -44 QRSD: 90 T: 11 QT: 347 QTc: 450 Interpretive Statements Sinus tachycardia Probable left atrial enlargement Left axis deviation Borderline ST elevation, anterolateral leads Baseline wander in lead(s) I,II,aVR,V1,V2,V3,V4,V6 Electronically Signed On 10-27-2024 10:12:51 PST by Torrey Sellers Please click the below link to view image of tracing.
[2024-10-26] MEDS: INSULIN LANTUS (GLARGINE) 1 /0.01ml (100units/ml) SC SCH (10:14)
[2024-10-26 12:35] VITALS: BP 115/82; PULSE 85; RESP 17; TEMP 97.4; O2SAT 96
[2024-10-26] MEDS ORDERED: ATOR20TA50 PO (15:57)
[2024-10-26] MEDS ORDERED: METF-929 PO (15:57)
[2024-10-26] MEDS ORDERED: GLIP5TAB21 PO (15:57)
[2024-10-26] MEDS ORDERED: ASPI-325 PO (15:57)
--- NOTE | 2024-10-26 16:12 | DVHDS2 ---
Discharge Summary Date of Admission Oct 23, 2024 at 07:41 Date of Discharge: Oct 26, 2024 Admitting Diagnosis # Uncontrolled blood sugar # Rule out DKA # Possible Diabetes mellitus type 2 Labs/Diagnostic Data: Laboratory Results Test 10/26/24 04:50 10/25/24 06:17 10/23/24 06:17 10/23/24 06:11 Sodium Level 138 mmol/L (136-145) Potassium Level 3.4 mmol/L (3.5-5.1) Chloride Level 104 mmol/L (98-107) Carbon Dioxide Level 24 mmol/L (20-31) Anion Gap 10 (5-15) Blood Urea Nitrogen 8 mg/dL (9-23) Creatinine 0.70 mg/dL (0.700-1.30) Glomerular Filtration Rate Calc 111 mL/min (>90) BUN/Creatinine Ratio 11.4 (10.0-20.0) Serum Glucose 195 mg/dL (74-106) Calcium Level 10.0 mg/dL (8.7-10.4) Magnesium Level 1.9 mg/dL (1.6-2.6) Total Bilirubin 0.6 mg/dL (0.2-1.0) Aspartate Amino Transferase (AST) 46 U/L (13-40) Alanine Aminotransferase (ALT) 54 U/L (7-40) Alkaline Phosphatase 84 U/L (46-116) Total Protein 6.7 g/dL (5.7-8.2) Albumin 3.7 g/dL (3.2-4.8) White Blood Count 7.3 10^3/uL (4.4-10.8) Red Blood Count 4.13 10^6/uL (4.5-5.90) Hemoglobin 13.8 g/dL (13.5-17.5) Hematocrit 39.2 % (41.0-53.0) Mean Corpuscular Volume 94.9 fL (80.0-100.0) Mean Corpuscular Hemoglobin 33.5 pg (28.0-32.0) Mean Corpuscular Hemoglobin Concent 35.2 g/dL (32.0-36.0) Red Cell Distribution Width 13.0 % (11.8-14.3) Platelet Count 205 10^3/uL (140-450) Mean Platelet Volume 9.3 fL (6.9-10.8) Neutrophils (%) (Auto) 49.1 % (37.0-80.0) Lymphocytes (%) (Auto) 32.8 % (10.0-50.0) Monocytes (%) (Auto) 8.0 % (0.0-12.0) Eosinophils (%) (Auto) 9.6 % (0.0-7.0) Basophils (%) (Auto) 0.5 % (0.0-2.0) Neutrophils # (Auto) 3.6 10 ^3/uL (1.6-8.6) Lymphocytes # (Auto) 2.4 10 ^3/uL (0.4-5.4) Monocytes # (Auto) 0.6 10 ^3/uL (0-1.3) Eosinophils # (Auto) 0.7 10 ^3/uL (0-0.8) Basophils # (Auto) 0 10 ^3/uL (0-0.2) Nucleated Red Blood Cells 0.1 % Free Thyroxine (T4) Calculated 1.00 ng/dL (0.89-1.76) Free Triiodothyronine (T3) pg/mL 2.97 pg/mL (2.3-4.2) Triglycerides Level 268 mg/dL (< 150) Cholesterol Level 286 mg/dL (< 200) LDL Cholesterol 199 mg/dL (< 100) HDL Cholesterol 55 mg/dL (40-59) Beta-Hydroxybutyric Acid 4.262 mmol/L (< 0.4) Thyroid Stimulating Hormone (TSH) 6.66 uIU/mL (0.55-4.78) Hemoglobin A1c 14.0 % A1C (<5.7) Troponin I High Sensitivity 6 ng/L (</=54) Test 10/23/24 00:09 Lactic Acid Level 1.2 mmol/L (0.4-2.0) Other Laboratory Tests 10/26/24 04:50 10/25/24 06:17 Brief Hx & Hospital Course: History on Admission: This 54-year-old male presents in the ED with a chief complaint of chest wall pain. The patient reports intermittent chest wall pain for the past one month. Chest pain described as pressure pain associated with shortness of breath, worse on exertion intermittently, and bilateral leg pain for the past one month. The patient denies past medical history and has not seen PCP due to lacking of insurance. Patient denies tobacco, illicit drug, or ETOH use. Denies familiar history of cardiovascular disease. In the emergency department, noted blood sugar of 609, positive beta hydroxy. The patient was given IV fluid and repeated blood sugar came back entry 100s. Studies: CXR IMPRESSION: 1. No acute cardiopulmonary disease. Labs: Condition at Discharge: Good Final Diagnosis/Problems List uncontrolled Diabetes Hyperglycemia. Also New meds include Atorvastatin 20 mg once a day . Discharge Disposition: Home Discharge Instruct/Medications Diet: Consistent carbohydrate Diet comment: Diabetic Ciet Activity: No Restrictions, As Tolerated Follow Up/Referral: With PCP in less than2 weeks Care Plan: D F/u with PCP in 2 weeks for FM management. Discharge Statement: "Patient was advised to return to the ER or call 911 if any headaches, dizziness, shortness of breath, chest pain, abdominal pain, bleeding, fevers, or worsening of medical condition. Patient was counseled about treatment plan, medications, possible side effects, patientverbalized understanding. All questions were answered to the best of my ability. This discharge took greater then 30 minutes in planning, reviewing documentation, counseling the patient, and discussing with other team members." ASSESSMENT ASSESSMENT Assessment #uncontrolled diabetes mellitus type 2- - Meds started - F.u with PCP #MEG- improved. #Hypokalemia- improved. Date of Service: Oct 26, 2024 Billing Provider: LLOYD GERMAN MD Common Visit Codes: 34737-TGX/OBS DISCH DAY >30min LLOYD GERMAN MD Oct 26, 2024 16:12
[2024-10-26 16:55] VITALS: BP 135/66; PULSE 85; RESP 17; TEMP 97.5; O2SAT 97
== END 2024-10-26 18:00 | disposition home or self-care (01) | DRG 420 ==
LOC: ER 20:58 → DOU 10-23 07:41 → EAST 10-23 19:10
PROVIDERS: ADMIT Family Medicine; ATTEND Family Medicine
DX: E11.00 Type 2 diabetes mellitus with hyperosmolarity without nonketotic hyperglycemic-hyperosmolar coma (NKHHC) (principal); N17.0 Acute kidney failure with tubular necrosis; I16.9 Hypertensive crisis, unspecified; E86.0 Dehydration; E66.9 Obesity, unspecified; E88.810 Metabolic syndrome; E87.6 Hypokalemia; Z68.30 Body mass index [BMI] 30.0-30.9, adult
CPT/HCPCS: 36415; 71045; 80048; 80053; 80061; 82010; 82962; 83036; 83605; 83735; 84439; 84443; 84481; 84484; 85025; 93005; 93306; 96360; 96361; 96372; G0378; J1815